=== PATIENT | female | born 1945 ===

== ENCOUNTER 2017-09-03 07:10 | Day surgery (SDC) | payer MEDICARE, OTHER ==
[2017-09-03 07:42] VITALS: BMI 27.6
[2017-09-03] MEDS ORDERED: Lactated Ringer's 1,000 ML IV ONE (09:40)
--- NOTE | 2017-09-03 09:42 | CP.SDSHP ---
Same Day Surgery H & P - History Proposed Procedure: endoscopy Pre-Op Diagnosis: abdom pain - Previous Medical/Surgical History Cardiac: Hypertension Endocrine/Metabolic: Diabetes - Allergies Allergies: Allergies No Known Allergies Allergy (Verified 09/03/17 07:41) - Physical Exam Vital Signs: Vital Signs 09/03/17 08:02 Temperature 97.9 F Pulse Rate 75 Respiratory 19 Rate Blood Pressure 155/72 H O2 Sat by Pulse 99 Oximetry Mental Status: Alert & Oriented x3 Heart: WNL Lungs: WNL GI: WNL - {Optional Preform as Required} Abdomen: WNL - Impression Impression: gastritis Pt. Evaluated Today:Candidate for Anesthesia & Procedure: Yes - Date & Time Date: 09/03/17 Time: 09:42 Short Stay Discharge - Short Stay Discharge Admitting Diagnosis/Reason for Visit: DYSPHAGIA Disposition: HOME/ ROUTINE
[2017-09-03] MEDS ORDERED: Propofol 10 mg/ml Inj (20 ML) ONE (09:43)
[2017-09-03 10:19] VITALS: TEMP 96.9; O2SAT 100
[2017-09-03 11:13] VITALS: BP 134/67; PULSE 67; RESP 14
== END 2017-09-03 11:11 | disposition home or self-care (01) ==
LOC: C.ENDO 07:10
PROVIDERS: ATTEND Internal Medicine Gastroenterology
DX: R10.13 Epigastric pain (principal); R13.10 Dysphagia, unspecified; K21.0 Gastro-esophageal reflux disease with esophagitis; K29.70 Gastritis, unspecified, without bleeding
CPT/HCPCS: 43239; 82948; 88305; J2704; J7120